=== PATIENT | male | born 1985 | race Caucasian/White ===

== ENCOUNTER → 2022-01-12 | Outpatient (CLI) | payer OTHER ==
--- NOTE | 2022-01-12 15:16 | P.SLEEP ---
History of Present Illness H&P Date: 01/12/22 This is a 36-year-old male patient referred to me for sleep apnea evaluation. The patient has been gaining weight over the years and the patient has developed loud snoring, witnessed apneas and excessive tiredness and sleepiness during the day. His current upper scores at 17. He is going to bed around 10 PM, waking up 4 AM in the morning and on weekends he sleeps until 7 AM in the morning. He has no issues going into sleep. His sleep is fragmented and occasionally wakes up up to 5 times in the middle of the night may be to use the bathroom on few occasions. He will wake up in odd positions. Denies waking up choking or gasping for air. The patient has gained at least 40 pounds over the past 5 years. He sleeps on his side. No personal or family history obstructive sleep apnea. No alcoholism. No sinus disease. He is a mouth breather. He wakes up with a dry mouth. Occasional restlessness lower extremities bilaterally. Otherwise, no major comorbidities. No history of any motor vehicle accidents because of feeling drowsy or sleepy. Denies falling asleep while driving. De spite his increased sleepiness, his functionality is adequately preserved. Review of Systems Constitutional: Reports daytime sleepiness, Reports weight gain Eyes: denies as per HPI, denies blurred vision, denies bulging eye, denies decreased vision, denies diplopia, denies discharge, denies dry eye, denies irritation, denies itching, denies pain, denies photophobia, denies loss of peripheral vision, denies loss of vision, denies tunnel vision/blind spots Ears: deny: decreased hearing, ear discharge, earache, tinnitus Ears, nose, mouth and throat: Reports as per HPI Breasts: absent: as per HPI, gynecomastia Cardiovascular: Reports as per HPI Respiratory: Reports snoring Gastrointestinal: Reports as per HPI Genitourinary: Reports as per HPI Musculoskeletal: Reports as per HPI Musculoskeletal: absent: ankle pain, ankle stiffness, ankle swelling, as per HPI, elbow pain, elbow stiffness, elbow swelling, foot pain, foot stiffness, foot swelling, hand pain, hand stiffness, hand swelling, hip pain, hip stiffness, hip swelling, knee pain, knee stiffness, knee swelling, shoulder pain, shoulder stiffness, shoulder swelling, wrist pain, wrist stiffness, wrist swelling Integumentary: Reports as per HPI Neurological: Reports as per HPI Psychiatric: Reports as per HPI Endocrine: Reports as per HPI Hematologic/Lymphatic: Reports as per HPI Allergic/Immunologic: Reports as per HPI Past Medical History Additional Past Medical History / Comment(s): Heartburn/acid reflux, obesity Medications and Allergies Home Medications and Allergies Comment(s): Omeprazole 20 mg by mouth daily Physical Exam BP is 136/80 with a pulse of 83 and respiration of 20 and the temperature 97.6. Weight is 214 pounds. Body mass index is 42.7. [place] score is at 17. The patient appeared well nourished and normally developed. Vital signs as documented. Head exam is unremarkable. No scleral icterus or corneal arcus noted. Neck is without jugular venous distension, thyromegaly, or carotid bruits. Carotid upstrokes are brisk bilaterally. Patient has a Mallampati class I. Lungs are clear to auscultation and percussion. Cardiac exam reveals the PMI to be normally sized and situated. Rhythm is regular. First and second heart sounds normal. No murmurs, rubs or gallops. Abdominal exam reveals normal bowel sounds, no masses, no organomegaly and no aortic enlargement. Extremities are nonedematous and both femoral and pedal pulses are normal.Examination of the skin revealed no evidence of significant rashes, suspicious appearing nevi or other concerning lesions.Neurologically, the patient is awake and alert and the patient does not have any focal neurological deficit. Cranial nerves are essentially intact. Assessment and Plan Plan: Chronic hypersomnia with an [place] score of 17, with an increased likelihood for an underlying obstructive sleep apnea Obesity with a BMI of 42 Loud snoring and witnessed apneas, supporting the diagnosis of obstructive sleep apnea Heartburn Plan Proceed with a screening polysomnogram Encourage weight loss Extensively hours to an average of 7-8 hours per night Avoid any form of sleep deprivation Maintain regular sleep schedule Encourage weight loss We'll continue to follow make further recommendations depending on results of the sleep study. Sleep Note - Sleep Note Sleep Note: Temperature: Pulse Rate: Respiratory Rate: Blood Pressure: SpO2: Height: Weight: BMI: Neck Circumference:
== END ==
LOC: SLEEP 14:50
PROVIDERS: ATTEND Internal Medicine Critical Care Medicine
DX: G47.10 Hypersomnia, unspecified (principal); G47.30 Sleep apnea, unspecified; E66.9 Obesity, unspecified; Z68.41 Body mass index [BMI] 40.0-44.9, adult; R12 Heartburn
CPT/HCPCS: 99202